=== PATIENT | female | born 1970 | race Caucasian/White ===

== ENCOUNTER → 2023-09-29 08:02 | Outpatient (REF) | payer OTHER, SELFPAY | LOC: HWRAD 08:02 | PROVIDERS: ATTENDING PHYSICIAN Obstetrics & Gynecology Gynecologic Oncology; FAMILY PHYSICIAN Nurse Practitioner; OTHER PHYSICIAN Nurse Practitioner; REFERRING PHYSICIAN Student in an Organized Health Care Education/Training Program | DX: Z15.02 Genetic susceptibility to malignant neoplasm of ovary (principal); Z15.01 Genetic susceptibility to malignant neoplasm of breast; R10.30 Lower abdominal pain, unspecified | CPT/HCPCS: 74177; Q9967 ==

== ENCOUNTER → 2023-10-23 07:22 | Outpatient (REF) | payer OTHER, SELFPAY | LOC: HWRCS 07:22 | PROVIDERS: ATTENDING PHYSICIAN Internal Medicine Cardiovascular Disease; FAMILY PHYSICIAN Nurse Practitioner | DX: R01.1 Cardiac murmur, unspecified (principal) | CPT/HCPCS: 93306 ==

== ENCOUNTER → 2024-01-04 13:45 | Outpatient (REF) | payer BC, SELFPAY | LOC: HWRAD 13:45 | PROVIDERS: ATTENDING PHYSICIAN Internal Medicine Critical Care Medicine; FAMILY PHYSICIAN Internal Medicine | DX: R93.89 Abnormal findings on diagnostic imaging of other specified body structures (principal) | CPT/HCPCS: 71250 ==

== ENCOUNTER → 2024-01-10 09:48 | Outpatient (REF) | payer BC, SELFPAY | LOC: WDC 09:48 | PROVIDERS: ATTENDING PHYSICIAN Nurse Practitioner; FAMILY PHYSICIAN Internal Medicine | DX: R92.8 Other abnormal and inconclusive findings on diagnostic imaging of breast (principal) | CPT/HCPCS: 76642; 77062; 77066 ==

== ENCOUNTER → 2024-02-12 11:00 | Outpatient (REF) | payer BC, SELFPAY | LOC: HWRAD 11:00 | PROVIDERS: ATTENDING PHYSICIAN Specialist; FAMILY PHYSICIAN Internal Medicine | DX: R94.4 Abnormal results of kidney function studies (principal); R80.9 Proteinuria, unspecified | CPT/HCPCS: 76770 ==

== ENCOUNTER 2024-03-21 17:25 | Emergency (ER) | payer BC, SELFPAY ==
[2024-03-21 17:26] VITALS: BP 117/90
--- NOTE | 2024-03-21 17:51 | ED.GENMED ---
History of Present Illness
General
Chief Complaint: Bowel Problem
Source: patient
Exam Limitations: none
Time Seen by Provider: 03/21/24 17:37
History of Present Illness
History of Present Illness:
53 year old female presents complaining of constipation and lower back and buttock pain. This has been ongoing for several days. She tried stool softeners. She tried an enema. She noted little relief with the enema. She notes bloating sensation
in her abdomen but no significant pain. No nausea vomiting or fever. No urinary symptoms. No perianal anesthesia. No other complaints. She has had a prior surgical history of appendectomy and 4 C-sections
Past History
Past History
ED Past Medical History: Asthma
ED Past Surgical History: (X 4)
Social History
Tobacco: Non-smoker
Personal:
Living: with family
Employment: Employed
Phy Exam
Physical Exam
Physical Exam:
General: Well-appearing female nontoxic no acute respiratory distress
HEENT: Normocephalic atraumatic
Heart: Regular rate and rhythm
Lungs: Clear no wheeze
Abdomen is soft nontender nondistended normal bowel sounds no guarding or rebound
Extremities: No cyanosis
Course
Orders/Labs/Results
Orders:
Orders
03/21/24 17:49
CR Obstruct Series W/pa Chest Urgent
Comment:
Reason For Exam: abdominal pain
03/21/24 20:04
Magnesium Citrate [Citroma] 300 ml PO ONCE ONE
Vital Signs
Initial and Last Documented VS:
Initial Vital Signs
Temp Pulse Resp BP Pulse Ox
97.8 F 97 18 117/90 96
03/21/24 17:26 03/21/24 17:26 03/21/24 17:26 03/21/24 17:26 03/21/24 17:26
Last Documented Vital Signs
Temp Pulse Resp BP Pulse Ox
97.8 F 97 18 117/90 96
03/21/24 17:26 03/21/24 17:26 03/21/24 17:26 03/21/24 17:26 03/21/24 17:26
MDM/Problems Addressed
Differential Diagnosis Includes:
Constipation. Consider constipation versus bowel obstruction versus abdominal pain of unclear etiology. Abdomen exam quite benign do not suspect bowel obstruction but will order obstruction series for screen. Consider magnesium citrate versus
enema
*Critical Care Note
Total Time (30-74mins, 75-104mins- exclusive of procedures): Not Applicable
Update Note
Update Note:
Obstruction series shows no obstructive pattern. There is mild amount of stool throughout the colon. Will recommend magnesium citrate. Stable for discharge with follow up.
ED Attending Note
-
Portions of this chart may have been created with voice recognition software.� Occasional wrong word or��sound alike� substitutions may have occurred due to the inherent limitations of voice recognition software.
Discharge Plan
Departure
Patient Disposition: Home (Routine Discharge)
Date of Disposition: 03/21/24
Time of Disposition: 20:05
Patient with high blood pressure during this ER visit?: No
Discharge Problem:
Constipation
Instructions: Constipation, Adult (DC)
Prescriptions:
No Action
clobetasol 0.05 % Ointment
1 applic TOPICAL . 2-3 TIMES/WEEK
estradiol 0.01 % (0.1 mg/gram) Cream
1 appful VAGINAL DAILY
budesonide-formoterol [Symbicort] 160-4.5 mcg/actuation Hfa Aerosol Inhaler
2 puff INHALATION BID
albuterol-budesonide 90-80 mcg/actuation Hfa Aerosol Inhaler
2 inh INHALATION ONCE PRN (Reason: asthma)
Rx Instructions:
as a single dose; may repeat up to 6 doses per day (12 inhalations)
Vitamin D (with calcium)
1 cap PO DAILY
Referrals:
Luke Crespo MD [Family Provider] -
Activity Restrictions/Additional Instructions:
Drink plenty fluids. Continue with stool softeners. Use magnesium citrate as directed. Return if worse otherwise follow-up with your GI doctor
Interventions
Interventions:
*Risk Screen - Suicide Last Done: 03/21/24 17:26
IA-Yugnte-Yozjqlnfjp Assessment Last Done: 03/21/24 17:49
Discharge Date and Time
Print Language: SYRIAC
[2024-03-21] MEDS: CITROMA 300 ML PO (20:12)
[2024-03-21 20:15] VITALS: BP 109/69
== END 2024-03-21 20:25 | disposition home or self-care (01) ==
LOC: EMR 17:25
PROVIDERS: EMERGENCY PHYSICIAN Student in an Organized Health Care Education/Training Program; FAMILY PHYSICIAN Internal Medicine
DX: K59.00 Constipation, unspecified (principal); J45.909 Unspecified asthma, uncomplicated; Z90.49 Acquired absence of other specified parts of digestive tract
CPT/HCPCS: 99283; 74022

== ENCOUNTER 2024-03-26 11:20 | Day surgery (SDC) | payer BC, SELFPAY ==
[2024-01-19 08:23] VITALS: BMI 18.3
[2024-01-19 08:52] LABS: % Basophils 0.6 % (0-2); % Eosinophils 2.8 % (0-6); % Immature Granulocytes 0.2 % (0-0.5); % Lymphocytes 31.4 % (20.5-51.1); % Monocytes 6.8 % (1.7-9.3); % Neutrophils 58.2 % (42.2-75.2); Absolute Eosinophils 0.1 10^3/uL (0-0.7); Absolute Lymphocytes 1.6 10^3/uL (1.2-3.4); Absolute Monocytes 0.3 10^3/uL (0.1-0.6); Absolute Neutrophils 2.9 10^3/uL (1.4-6.5); Hematocrit 37.7 % (37.0-47.0); Hemoglobin 13.1 g/dL (12.0-16.0); Mean Corp Hgb Conc. 34.7 g/dL (33.0-37.0); Mean Corpuscular Hgb 31.3 pg (27.0-31.0); Mean Platelet Volume 10.3 fL (7.4-10.4); Nucleated Red Blood Cells % 0 %; Platelet Count 224 10^3/uL (130-400); Red Blood Cell Count 4.19 10^6/uL (4.20-5.40); Red Cell Dist. Width 11.5 % (11.5-14.5)
[2024-01-19 09:19] LABS: Blood Urea Nitrogen 20 mg/dl (7-17); Calcium 9.1 mg/dl (8.4-10.2); Carbon Dioxide 25 mmol/L (22-30); Chloride 105 mmol/L (98-107); Estimated Creatinine Clearance 64 ml/min; Glucose 80 mg/dl (70-99); Potassium 4.2 mmol/L (3.5-5.1); Sodium 142 mmol/L (135-145); eGFR > 60.00
[2024-03-26] VITALS (14 sets, daily range): BP systolic 15–121; BP diastolic 50–74; BMI 18.3
[2024-03-26] MEDS: VANCOCIN 200 IV (12:06)
[2024-03-26] MEDS: TYLENOL 1000 MG PO ×2 (12:07→20:42)
--- NOTE | 2024-03-26 12:45 | W.SUR.PREOP ---
Pre-Operative Surgical Note
-
I have examined this patient prior to the performance of the scheduled procedure.
The patient's condition is unchanged from the time of the current History and
Physical and the patient is able to undergo the scheduled procedure.
--- NOTE | 2024-03-26 16:45 | OR.RPT ---
Operative Report
Operative Report
The patient is a 53-year-old female who tested positive for a deleterious variant in BRCA1 locus and she presents for bilateral nipple sparing mastectomies and immediate reconstruction with Dr. Batista.
The patient was identified and she verified site and procedure. DVT and antibiotic prophylaxis were delivered and the patient was transferred to the operating room. In the supine position, intravenous sedation was straight the general anesthesia
was induced and a Hale catheter was inserted using aseptic technique. Both breasts and chest were prepped and draped in the usual sterile fashion and attention was first turned to the left breast where an inframammary incision marked by plastic
surgery was entered sharply with the blade. The breast was taken off the chest wall using the PlasmaBlade and lighted Invuity retractor. Then the breast tissue was elevated off the underlying breast tissue in the same fashion. Larger vessels were
controlled with a 3-0 silk tie or 3-0 silk suture ligature. The breast tissue was taken off the chest wall in a superioromedial to inferior lateral dimension. Time out of body was noted and the specimens were placed immediately in formalin after
they had been oriented for the pathologist. Hemostasis was verified and a moist pack was placed in the resection cavity. In a similar fashion the right mastectomy was performed as well. Dr. Sepulveda entered to begin the reconstructive portion of
the procedure at this juncture and all sponge needle and instrument counts were correct.
--- NOTE | 2024-03-26 16:57 | W.IMMPOSTOP ---
Surgical Immed Post Op Note
-
Primary Surgeon: ORA Batista MD
Assisting Surgeon:
Pre-op Diagnosis: genetic predisposition breast cancer
Post-op Diagnosis: same
Procedure Performed: bilateral mastectomy and immediate reconstruction with tissue expanders, insertion of ADM
Anesthesia Type: General
Specimen / Cultures: Per Dr. Bui
Estimated Blood Loss: 30 cc
Complications: none
Operative Findings: as expected
--- NOTE | 2024-03-26 16:57 | OR.RPT ---
Operative Report
Operative Report
Date of Surgery: 03/26/24
Surgeon: ORA Batista MD
Preoperative diagnosis: Genetic predisposition to breast cancer
Postoperative diagnosis: Same
Procedure:
1. Bilateral immediate breast reconstruction with tissue expanders
2. Insertion of ADM, sling bilateral
Complications: None
Anesthesia: General
EBL: 30 cc
Hand Straightener size: 11 cm
Indications for procedure: Patient was referred to me by Dr. Bui with a genetic predisposition to breast cancer. She was planned to undergo bilateral mastectomy. We discussed her options for breast reconstruction at length including implant
based and autologous options. The patient opted for immediate reconstruction with tissue expanders. She understands that the final reconstruction will be staged. We also discussed the use of ADM and spy angiography. Risks include reconstructive
failure, capsular contracture, infection, delayed wound healing, mastectomy skin flap necrosis, hematoma, seroma and need for repeat procedure. Patient understood these risks and desired to proceed. Consents were signed accordingly.
Procedure in detail: Patient was identified the preoperative area and the surgical site was confirmed to be the bilateral breast. All questions were answered and consents were confirmed. Patient was then sat upright and normal anatomical landmarks
were marked including midline and inframammary fold. Patient was then taken back to the operating room placed supine on the table. She was prepped and draped in the usual sterile fashion using ChloraPrep solution. A Hale catheter was placed. A
timeout for patient safety was performed was confirmed that bilateral SCDs were in place and preoperative antibiotics administered. The procedure began with Dr. Bui first performing the mastectomy. Her op report will be dictated separately.
When I entered the procedure, the first sided mastectomy had been completed. As such I inspected the wound bed of the chest wall and ensured meticulous hemostasis. The base width was measured and appropriate tissue graphic illustrator was selected. One 6 x
16 sheet of Cortiva ADM was soaked in dilute Betadine solution. dissection continued under the pectoralis major it from the chest wall. This formed a submuscular pocket for the tissue graphic illustrator. The graphic illustrator was then sutured to the
chest wall with a series of 2-0 silk sutures. Inferolateral ADM sling was sutured to the chest wall and border of the pectoralis using 2-0 Vicryl. Pectoralis and intercostal blocks were performed with Marcaine. 2 drains were then placed in the
preaxial area line with a long subcutaneous tunnel and sutured in place with 2-0 Prolene sutures. The wound was irrigated with double antibiotic solution and dilute Betadine. The mastectomy incisions were then closed with a series of 3-0 Vicryl's
in the deep subcutaneous tissues followed by 3-0 and 4-0 Monocryl's in the deep dermis and superficial skin.
Attention was then placed on the contralateral side after completion of the mastectomy. The exact same procedure was performed. An graphic illustrator of the same size was opened and 1 sheet of ADM was soaked in Betadine. The pectoralis muscle was elevated
from the chest wall to create a pocket for the graphic illustrator. The Hand Straightener was then inserted and sutured to the chest wall. ADM was used as an inferolateral sling and sutured to the chest wall and pectoralis with 2-0 Vicryls. Pectoralis and
intercostal blocks were performed. Meticulous hemostasis was ensured and the wound was irrigated with combination of double antibiotic solution consisting of Ancef and gentamicin as well as dilute Betadine. The wound was closed in layers with 3-0
Vicryl followed by 3-0 Monocryl and 4-0 Monocryl superficial skin.
The wounds were dressed accordingly and a supportive bra was placed. The patient was extubated taken to the PACU for further care. All counts were correct at the end the case was performed out complication.
[2024-03-26] MEDS: ZOFRAN 4 MG IV (18:18)
--- NOTE | 2024-03-26 19:00 | PTCARENOTE ---
19:00 pt rec'vd from PACU aaox3, bilateral breast incision dressings DI, bilateral breast double J-Ps intact with bloody drainage and surgical bra in place. Pt at time of admit to unit denies pain, family at the bedside, pt oriented to unit.
[2024-03-26] MEDS: SYMBICORT 160/4.5 MCG INHALER 2 PUFF INH (20:09)
[2024-03-26] MEDS: BACTRIM DS 800 MG/160 MG 1 TABLET PO (20:42)
[2024-03-26] MEDS: COLACE 100 MG PO (20:42)
[2024-03-26] MEDS: NEURONTIN 100 MG PO (22:06)
[2024-03-26] MEDS: ULTRAM 50 MG PO (22:38)
[2024-03-27] MEDS: TYLENOL 1000 MG PO ×3 (00:51→12:16)
[2024-03-27] MEDS: ProAIR HFA INHALER 2 PUFF INH (03:20)
--- NOTE | 2024-03-27 04:05 | DOWNTIME ---
There was a [employer] Client Wood Router Hand Downtime on 03/27/2024 from 0100 to 03/27/2024 at 0350. Downtime documentation of patient's care, including medication administrations, has been reconciled in the electronic record per guidelines. Refer to the
patient's paper chart under the miscellaneous tab to see printed paper medication records and downtime forms.
[2024-03-27] MEDS: ULTRAM 50 MG PO (04:47)
[2024-03-27 06:32] LABS: Hematocrit 35.9 % (37.0-47.0); Hemoglobin 12.6 g/dL (12.0-16.0)
[2024-03-27 07:09] LABS: Blood Urea Nitrogen 11 mg/dl (7-17); Calcium 8.6 mg/dl (8.4-10.2); Carbon Dioxide 25 mmol/L (22-30); Chloride 103 mmol/L (98-107); Estimated Creatinine Clearance 64 ml/min; Glucose 94 mg/dl (70-99); Potassium 4.1 mmol/L (3.5-5.1); Sodium 137 mmol/L (135-145); eGFR > 60.00
[2024-03-27] MEDS: SYMBICORT 160/4.5 MCG INHALER 2 PUFF INH (07:17)
[2024-03-27] MEDS: NON-FORMULARY ITEM 2 PUFF INH (07:19)
[2024-03-27 08:15] VITALS: BP 143/71
[2024-03-27] MEDS: NEURONTIN 100 MG PO (08:19)
[2024-03-27] MEDS: BACTRIM DS 800 MG/160 MG 1 TABLET PO (08:19)
[2024-03-27] MEDS: COLACE 100 MG PO (08:19)
--- NOTE | 2024-03-27 08:19 | W.PN.PLAS ---
Progress Note
Subjective Data
pain control issues overnight, will improve with oral meds today
Denies shortness of breath
Objective Data
Vital Signs
Temp Pulse Resp BP Pulse Ox
98 F 67 16 121/63 97
03/26/24 22:00 03/27/24 07:25 03/27/24 07:25 03/26/24 22:00 03/27/24 07:25
Intake and Output
03/26/24 03/27/24 03/28/24
06:59 06:59 06:59
Intake Total 590 / 590
Output Total 540 / 540
Balance 50 / 50
Intake:
Oral fluids 240 / 240
IV fluids (Total) 350 / 350
Normosol 350 / 350
Output:
Drain Output (Total) 340 / 340
Left Breast A 60 / 60
Left Breast B 120 / 120
Right Breast A 105 / 105
Right Breast B 55 / 55
Urine, Hale 200 / 200
Other:
Number of approximated SMALL 1
amounts of urine
Number of approximated MODERATE 1
amounts of urine
Number of approximated LARGE 1
amounts of urine
physical exam:
No acute distress
No increased work of breathing
Bilateral expanders in place
Drain serosanguineous with appropriate output
No undrained fluid collections
Dressings intact
Lab Results
03/27/24 05:25
03/27/24 05:25
Assessment / Plan
status post bilateral mastectomy and immediate reconstruction with tissue expanders
Discharge to home today with visiting nurse
SCDs
Antibiotics
P.o. pain control
--- NOTE | 2024-03-27 08:19 | W.DCSUMMARY ---
Discharge Summary
Discharge Data
Date of Admission: 03/26/24
Date of Discharge: 03/27/24
-
Pending Results: No
Hospital Course
Routine postoperative course following bilateral mastectomy and immediate tester wafer substrate recon.
Admitted for pain control and mastectomy flap monitoring.
Discharged on po pain meds, ambulatory, voiding, with close surgical follow up.
Discharge Plan
-
Patient Disposition: Home (Routine Discharge)
Discharge Diagnosis/Procedures: s/p bilateral mastectomy and immediate tester wafer substrate reconstruction
Condition: Good
Diet: No restrictions
Additional Diets: High fiber, probiotics
Activity: No strenuous activity
Additional Activity: No heavy lifting >10lbs, 'T-bridget' arms
Driving Restrictions: Not until seen by your Dr
Bathing Restrictions: OK to Shower
Other Services: VN
Wound Care: Remove dressings if they become wet, strip and record drain output twice daily, lightly compressive sports bra
Referrals:
Luke Crespo MD [Family Provider] -
Prescriptions:
New
polyethylene glycol 3350 17 gram Powder In Packet
17 g PO DAILY 14 Days Qty: 14 0RF
sulfamethoxazole-trimethoprim 800-160 mg Tablet
1 tab PO BID 21 Days Qty: 42 0RF
gabapentin 100 mg Capsule
100 mg PO TID 30 Days Qty: 90 3RF
acetaminophen 500 mg capsule
1,000 mg PO QID Qty: 240 2RF
tramadol 50 mg Tablet
50 - 100 mg PO Q6HPRN PRN (Reason: pain) 14 Days Qty: 24 0RF
diazepam 5 mg Tablet
5 mg PO TIDPRN 14 Days Qty: 42 1RF
Continued
clobetasol 0.05 % Ointment
1 applic TOPICAL . 2-3 TIMES/WEEK
estradiol 0.01 % (0.1 mg/gram) Cream
1 appful VAGINAL DAILY
budesonide-formoterol [Symbicort] 160-4.5 mcg/actuation Hfa Aerosol Inhaler
2 puff INHALATION BID
Vitamin D (with calcium)
1 cap PO DAILY
albuterol sulfate 90 mcg/actuation Hfa Aerosol Inhaler
2 puff INHALATION Q6H PRN (Reason: SOB)
docusate sodium
1 dose PO PRN PRN (Reason: constipation)
Rx Instructions:
Pt unable to provide exact dose at time.
magnesium citrate
1 dose PO PRN PRN (Reason: constipation)
Rx Instructions:
Pt unable to provide exact dose at this time.
Discontinued
polyethylene glycol 3350 [Miralax] 17 gram/dose Powder
4 g PO ONCE PRN (Reason: constipation)
Discharge Orders:
Discharge Patient (As Directed); Ordered 03/27/24
Ordered By: Anthony Batista
Discharge Date and Time
Print Language: MACANESE
[2024-03-27] MEDS: MIRALAX 17 GRAMS PO (08:20)
[2024-03-27] MEDS: VALIUM 5 MG PO (08:27)
--- NOTE | 2024-03-27 10:51 | VNURNOTE ---
Home Health Liaison spoke with patient and spouse to discuss [facility] nurse/therapy, visits, schedule and homebound status. Patient is agreeable and understands that visits at home will be 2-3 x per week to assess and teach medical and drain management.
Provided with [facility] contact information. Patient is aware that [facility] will contact them for start of care in 1-2 days after discharge from .
[facility] referral completed in [facility].
[2024-03-27 12:00] VITALS: BP 132/73
== END 2024-03-27 13:05 | disposition home or self-care (01) ==
LOC: SDS 11:20
PROVIDERS: ATTENDING PHYSICIAN Surgery; FAMILY PHYSICIAN Internal Medicine; OTHER PHYSICIAN Internal Medicine Critical Care Medicine; OTHER PHYSICIAN Obstetrics & Gynecology Gynecologic Oncology; OTHER PHYSICIAN Specialist; REFERRING PHYSICIAN Surgery Plastic and Reconstructive Surgery
DX: Z40.01 Encounter for prophylactic removal of breast (principal); Z15.01 Genetic susceptibility to malignant neoplasm of breast; Z80.3 Family history of malignant neoplasm of breast; Z87.09 Personal history of other diseases of the respiratory system
CPT/HCPCS: 19357; 19303; 15777; 88305; 88307; 36415; 80048; 85014; 85018; 85025; 87070; 88341; 88342; 93005; 94640; C1789; Q4100

== ENCOUNTER → 2024-05-15 10:22 | Outpatient (REF) | payer BC, SELFPAY ==
[2024-05-16 18:57] LABS: CA 125 < 5.5 U/mL (0-35)
== END ==
LOC: HWRAD 10:22
PROVIDERS: ATTENDING PHYSICIAN Obstetrics & Gynecology Gynecologic Oncology; FAMILY PHYSICIAN Internal Medicine; OTHER PHYSICIAN Nurse Practitioner; REFERRING PHYSICIAN Surgery
DX: Z15.02 Genetic susceptibility to malignant neoplasm of ovary (principal); Z15.01 Genetic susceptibility to malignant neoplasm of breast; C56.9 Malignant neoplasm of unspecified ovary; R10.30 Lower abdominal pain, unspecified
CPT/HCPCS: 36415; 76856; 86304

== ENCOUNTER 2024-05-31 12:59 | Outpatient (RCR) | payer BC, SELFPAY | END 2024-05-31 23:59 | disposition home or self-care (01) | LOC: RPT 12:59 | PROVIDERS: ATTENDING PHYSICIAN Surgery Plastic and Reconstructive Surgery; FAMILY PHYSICIAN Internal Medicine | DX: Z42.1 Encounter for breast reconstruction following mastectomy (principal); L90.5 Scar conditions and fibrosis of skin; Z15.89 Genetic susceptibility to other disease; Z15.01 Genetic susceptibility to malignant neoplasm of breast; Z73.6 Limitation of activities due to disability; Z40.01 Encounter for prophylactic removal of breast | CPT/HCPCS: 97110; 97140; 97162; 97530 ==

== ENCOUNTER 2024-06-21 08:45 | Outpatient (RCR) | payer BC, SELFPAY | END 2024-06-21 23:59 | disposition home or self-care (01) | LOC: RPT 08:45 | PROVIDERS: ATTENDING PHYSICIAN Surgery Plastic and Reconstructive Surgery; FAMILY PHYSICIAN Internal Medicine | DX: Z42.1 Encounter for breast reconstruction following mastectomy (principal); Z15.89 Genetic susceptibility to other disease; L90.5 Scar conditions and fibrosis of skin; Z15.01 Genetic susceptibility to malignant neoplasm of breast; Z73.6 Limitation of activities due to disability; Z40.01 Encounter for prophylactic removal of breast | CPT/HCPCS: 97110; 97112; 97140; 97530 ==

== ENCOUNTER 2024-06-26 06:34 | Day surgery (SDC) | payer BC, SELFPAY ==
[2024-06-25 11:04] LABS: % Basophils 0.7 % (0-2); % Eosinophils 3.2 % (0-6); % Immature Granulocytes 0.2 % (0-0.5); % Lymphocytes 40.6 % (20.5-51.1); % Monocytes 8.2 % (1.7-9.3); % Neutrophils 47.1 % (42.2-75.2); Absolute Eosinophils 0.1 10^3/uL (0-0.7); Absolute Lymphocytes 1.6 10^3/uL (1.2-3.4); Absolute Monocytes 0.3 10^3/uL (0.1-0.6); Absolute Neutrophils 1.9 10^3/uL (1.4-6.5); Hematocrit 41.5 % (37.0-47.0); Hemoglobin 14.3 g/dL (12.0-16.0); Mean Corp Hgb Conc. 34.5 g/dL (33.0-37.0); Mean Corpuscular Hgb 30.4 pg (27.0-31.0); Mean Corpuscular Volume 88.3 fL (81.0-99.0); Nucleated Red Blood Cells % 0 %; Platelet Count 230 10^3/uL (130-400)
[2024-06-25 12:02] LABS: ALT (SGPT) 15 U/L (0-35); AST (SGOT) 19 U/L (14-36); Alkaline Phosphatase 69 U/L (38-126); Blood Urea Nitrogen 14 mg/dl (7-17); Calcium 9.3 mg/dl (8.4-10.2); Carbon Dioxide 29 mmol/L (22-30); Chloride 101 mmol/L (98-107); Glucose 82 mg/dl (70-99); Sodium 140 mmol/L (135-145); eGFR > 60.00
[2024-06-25 13:43] VITALS: BMI 20.1
[2024-06-26] VITALS (9 sets, daily range): BP systolic 96–114; BP diastolic 64–74; BMI 20.1
[2024-06-26] MEDS: NEURONTIN 300 MG PO (13:06)
[2024-06-26] MEDS: TYLENOL 1000 MG PO (13:06)
[2024-06-26] MEDS: CELEBREX 200 MG PO (13:06)
[2024-06-26] MEDS: NORMOSOL-R/PLASMALYTE-A 1000 IV (13:07)
[2024-06-26] MEDS: HEPARIN 5000 UNITS SC (13:07)
--- NOTE | 2024-06-26 16:38 | W.IMMPOSTOP ---
Surgical Immed Post Op Note
-
Primary Surgeon: ORA Batista MD
Assisting Surgeon:
Pre-op Diagnosis: BRCA positive
Post-op Diagnosis: Same
Procedure Performed: Bilateral removal of breast tissue expanders, bilateral insertion of permanent silicone gel implants, fat grafting to bilateral breasts with donor site medial thighs
Anesthesia Type: General
Specimen / Cultures: None
Estimated Blood Loss: 10 cc
Complications: None
Operative Findings: As expected
--- NOTE | 2024-06-26 16:39 | OR.RPT ---
Operative Report
Operative Report
Date of surgery: 06/26/2024
Surgeon: ORA Batista MD
Preoperative diagnosis: History of genetic predisposition of breast cancer, BRCA
Postoperative diagnosis: Same
Procedure:
1. Bilateral removal of tissue expanders, breast
2. Bilateral insertion of permanent silicone gel breast implants
3. Fat grafting to the bilateral breasts, 70 cc total, donor site medial thighs
Anesthesia: General
EBL: 10 cc
Complications: None
Specimens: None
Indications for procedure: Patient is known to me for having a genetic predisposition to breast cancer status post bilateral nipple sparing mastectomy and immediate reconstruction with tissue expanders. She is ready for the second stage of
reconstruction desired to exchange the expanders for permanent silicone gel breast implants. This would be done concurrently with a procedure by Dr. Page in which he would be performing a laparoscopic BSO. Risks of silicone gel breast implants
were reviewed at length including rupture, capsular contracture, KY, [place] ALCL, malposition, wrinkling and rippling as well as infection. Risks of fat grafting reviewed including fat necrosis, oil cyst, donor site abnormality. General risks of
hematoma, seroma, infection were reviewed. Patient understood these risk desire to proceed.
Procedure in detail: Patient was identified preoperatively and the surgical site was confirmed to the bilateral breast and medial thighs. The inframammary scar was marked out for incision with the patient upright position. Medial thighs were also
marked out with the relative areas of lipodystrophy. All questions were answered consents were confirmed. Patient was taken back to the operating room placed supine on table. Anesthesia was induced and the patient was prepped and draped in the
usual sterile fashion using ChloraPrep solution. A timeout for patient safety was performed was confirmed that preoperative antibiotics have been administered and bilateral SCDs were placed. I started my portion of the procedure with the injection
of 1% lidocaine with epinephrine in the inframammary folds as well as access sites of the medial thighs. Bilateral thighs were tumesced with a solution consisting of a dilute solution of lidocaine with epinephrine and a liter of normal saline. A
total of 500 cc was infiltrated into the each thigh. Attention was then drawn back up to the breast where the inframammary fold was incised dissection continued sharply to elevate the inferior pole skin flap. Bovie electrocautery was used to
perform a capsulotomy and the tissue mobile home lot utility worker was removed. Additional capsulotomies were performed to expand the lower pole and a radial pattern as well as superior medially accommodate room for the implant. Tickles hemostasis was ensured and a
gel sizer was placed. The sizer was 325 cc. It was noted that this may have overcorrected or be on the patient's desires. As such smaller implant size was selected. A 285 cc Sientra smooth cohesive silicone implant was selected. The implant
pocket was irrigated with double antibiotic solution followed by by dilute Betadine. New gloves were donned and using a no touch technique and a Tatum funnel the implant was inserted into the right breast. The wound was then closed with layers
including 2-0 Vicryl deep followed by 3 and 4 Monocryl. Attention was drawn to the left side where the exact same procedure was performed. Inframammary fold was incised and dissection continued until the capsule was encountered and capsulotomy was
performed and tissue mobile home lot utility worker was removed. Additional capsulotomies were made in the to expand the lower pole and the superior medial aspect to accommodate the implant. A sizer was placed to ensure adequate symmetry been achieved and the
modifications the pocket were made. Meticulous hemostasis was ensured and the pocket was irrigated with double antibiotic solution followed by dilute Betadine. Another 285 cc implant was opened and after donning new gloves placed in a no touch
technique using a Tatum funnel. The wound was closed in 3 layers with 2-0 Vicryl deep followed by 3 and 4 Monocryl. Attention was then drawn to the fat graft harvest of medial thighs. A total o of 300 cc of Lipo aspirate was removed from the
medial thighs using a SAF E protocol. The fat was processed using the PURE GRAFT system.
This allowed for 35 cc of fat grafting to be injected into each breast. This was distributed along the portion of the breast where the pectoralis muscle did not provide adequate coverage. Great symmetry had been achieved. Vocals were closed with
5-0 fast. Wounds were dressed with antibiotic ointment followed by dry gauze and Tegaderm. Patient tolerated the procedure well was performed without complication all counts were correct correct at the conclusion of my case. At this time the
patient was redraped and Dr. Page completed his portion of the procedure. His op report will be dictated separately.
--- NOTE | 2024-06-26 16:55 | OR.RPT ---
Operative Report
Operative Report
Date of surgery: 06/26/2024
Preoperative diagnosis: BRCA mutation, desire for risk reducing salpingo-oophorectomy
Postoperative diagnosis: Same
Procedure: Laparoscopic bilateral salpingo-oophorectomy, dilation and curettage, pelvic washing
Surgeon: Ayo Page MD
Assist: Lelia Falk PA-C
The assistance of MARBELLA was required due to the complexity of the procedure. During the procedure PA assisted with retraction, resection, and closure of the wound.
Anesthesia General Endotracheal intubation
Complication: None
Estimated blood loss: 5 cc
Indication for surgery: This patient has BRCA mutation, she has undergone bilateral risk reducing mastectomy, she is returning back to the operating room for exchange of expanders with implants. Following completion of this procedure she wanted to
undergo laparoscopic bilateral salpingo-oophorectomy for risk reducing purposes at the same time. Preoperative imaging has been suggestive of normal tubes and ovaries and her CA125 is normal.
Specimens: Endometrial curetting, pelvic washings, right tube and ovary, left tube and ovary
Procedure in detail: After completion of first portion of the surgery by plastics team the patient was repositioned in lithotomy, she was already intubated, her arms were wrapped with foam and placed on the patient's side and tucked along the body.
Appropriate IVs were already in place. The Hale catheter was already in place. Vaginal and perineal prep was performed with Betadine solution. Timeout procedure was carried out she had received Ancef already, anterior lip of the cervix was
grasped with single-tooth tenaculum the cervical canal was gradually dilated there was sharply anteverted sharp curettage of the endometrial cavity was performed and minimal tissue was obtained and this was submitted to pathology. I placed a
uterine manipulator stiff neck loader type in the uterine cavity. 2.5 cm Ami ring was used. Next attention was turned to the abdomen, Veress needle was inserted just below the left subcostal margin and insufflation of the abdomen with CO2 gas was
performed up to pressure of 15 mmHg. Following this 5 mm port was placed 5 cm above the umbilicus and a survey of the abdomen was performed upper abdomen including right and left lobe of liver right and left diaphragms omentum right and left
paracolic gutters are within normal limits. There were filmy adhesions in the right lower quadrant which were taken down sharply eventually into the thicker omental adhesions to the anterior abdominal wall which was also taken down with the vessel
sealer. A 5 mm port was placed in the right lower quadrant, 11 mm port was placed in the left lower quadrant. Patient was placed in 28 degree Trendelenburg. Washings were collected from the posterior cul-de-sac. The uterus appeared to be within
normal limits right and left tubes and ovaries were normal in appearance there were no peritoneal implants present. Posterior leaf of the broad ligament was opened bilaterally retroperitoneum was explored. Course of the ureters were identified.
An avascular window was developed between IP ligaments and ureters. Both IP ligaments were sealed 3 times with vessel sealer and divided. We then detached each tube and ovary from the cornua of the uterus as well as uterosacral ligaments with
vessel sealer and the remainder of the peritoneal attachments were sealed and divided. Each tube and ovary was placed in a separate endoscopic bag and was retrieved through the 11 mm port. We examined all operative sites and good hemostasis was
present. Following this pneumoperitoneum was released. The fascia at the 11 mm port site was closed with a single suture of 0 Vicryl approximating the fascia. 4-0 Monocryl was used in subcuticular fashion to close all skin incisions. Total of 10
cc 0.5% Marcaine was applied to the 3 incisions, Hale catheter and uterine manipulator was removed. Patient was awakened extubated and returned back to recovery room stable awake and extubated condition. Counts of laps instruments and needle was
correct x 2. I was present and scrubbed for entire procedure as dictated above
Disposition: To PACU stable awake extubated
[2024-06-26] MEDS: DEMEROL 12.5 MG IV (17:23)
[2024-06-26] MEDS: ROXICODONE 5 MG PO (19:00)
== END 2024-06-26 19:10 | disposition home or self-care (01) ==
LOC: SDS 06:34
PROVIDERS: ATTENDING PHYSICIAN Surgery Plastic and Reconstructive Surgery; FAMILY PHYSICIAN Internal Medicine
DX: N83.8 Other noninflammatory disorders of ovary, fallopian tube and broad ligament (principal); Z15.01 Genetic susceptibility to malignant neoplasm of breast; K66.0 Peritoneal adhesions (postprocedural) (postinfection); Z98.890 Other specified postprocedural states; Z42.1 Encounter for breast reconstruction following mastectomy; Z40.01 Encounter for prophylactic removal of breast
CPT/HCPCS: 11970; 15771; 58661; 58120; 88305; 36415; 80053; 85025; 86850; 86900; 86901; 88112; 88341; 88342; 93005; C1776; C1789; L8000

== ENCOUNTER → 2024-07-22 08:42 | Outpatient (REF) | payer BC, SELFPAY | LOC: HWRAD 08:42 | PROVIDERS: ATTENDING PHYSICIAN Physician Assistant Surgical; FAMILY PHYSICIAN Student in an Organized Health Care Education/Training Program; OTHER PHYSICIAN Internal Medicine; REFERRING PHYSICIAN Obstetrics & Gynecology Gynecologic Oncology | DX: Z15.02 Genetic susceptibility to malignant neoplasm of ovary (principal); Z15.01 Genetic susceptibility to malignant neoplasm of breast; R10.30 Lower abdominal pain, unspecified | CPT/HCPCS: 77080 ==

== ENCOUNTER 2024-07-26 11:05 | Outpatient (RCR) | payer BC, SELFPAY | END 2024-07-26 23:59 | disposition home or self-care (01) | LOC: RPT 11:05 | PROVIDERS: ATTENDING PHYSICIAN Surgery Plastic and Reconstructive Surgery; FAMILY PHYSICIAN Internal Medicine | DX: R20.2 Paresthesia of skin (principal); M62.81 Muscle weakness (generalized); R20.0 Anesthesia of skin; Z73.6 Limitation of activities due to disability; K59.09 Other constipation; Z90.13 Acquired absence of bilateral breasts and nipples | CPT/HCPCS: 97110; 97140; 97162; 97530 ==

== ENCOUNTER 2024-08-27 06:26 | Outpatient (RCR) | payer BC, SELFPAY | END 2024-08-27 23:59 | disposition home or self-care (01) | LOC: RPT 06:26 | PROVIDERS: ATTENDING PHYSICIAN Surgery Plastic and Reconstructive Surgery; FAMILY PHYSICIAN Internal Medicine | DX: Z40.01 Encounter for prophylactic removal of breast (principal); M62.81 Muscle weakness (generalized); F52.6 Dyspareunia not due to a substance or known physiological condition; R20.2 Paresthesia of skin; Z73.6 Limitation of activities due to disability; R20.0 Anesthesia of skin; K59.09 Other constipation; Z90.13 Acquired absence of bilateral breasts and nipples | CPT/HCPCS: 97110; 97112; 97140; 97530 ==

== ENCOUNTER → 2024-09-09 08:02 | Outpatient (REF) | payer BC, SELFPAY ==
[2024-09-09 08:30] LABS: % Basophils 0.7 % (0-2); % Immature Granulocytes 0.2 % (0-0.5); % Neutrophils 43.1 % (42.2-75.2); Absolute Eosinophils 0.2 10^3/uL (0-0.7); Absolute Lymphocytes 1.7 10^3/uL (1.2-3.4); Absolute Monocytes 0.4 10^3/uL (0.1-0.6); Absolute Neutrophils 1.7 10^3/uL (1.4-6.5); Hematocrit 40.4 % (37.0-47.0); Mean Corp Hgb Conc. 34.7 g/dL (33.0-37.0); Mean Corpuscular Hgb 31.2 pg (27.0-31.0); Mean Platelet Volume 9.7 fL (7.4-10.4); Nucleated Red Blood Cells % 0 %; Platelet Count 220 10^3/uL (130-400); Red Blood Cell Count 4.49 10^6/uL (4.20-5.40); Red Cell Dist. Width 11.4 % (11.5-14.5)
[2024-09-09 09:23] LABS: Vitamin D, 25-OH*** 40.3 ng/mL (30-80)
[2024-09-09 09:36] LABS: TSH Reflex To Free T4 1.64 uIU/ml (0.47-4.68)
== END ==
LOC: REG 08:02
PROVIDERS: ATTENDING PHYSICIAN Physician Assistant Surgical; FAMILY PHYSICIAN Family Medicine; OTHER PHYSICIAN Internal Medicine Critical Care Medicine
DX: Z15.02 Genetic susceptibility to malignant neoplasm of ovary (principal); Z15.01 Genetic susceptibility to malignant neoplasm of breast; R10.30 Lower abdominal pain, unspecified; Z13.820 Encounter for screening for osteoporosis
CPT/HCPCS: 36415; 82306; 84443; 85025

== ENCOUNTER → 2024-09-19 09:32 | Outpatient (REF) | payer BC, SELFPAY ==
[2024-09-19 10:14] LABS: % Basophils 0.6 % (0-2); % Eosinophils 2.4 % (0-6); % Immature Granulocytes 0.2 % (0-0.5); % Lymphocytes 36.9 % (20.5-51.1); % Neutrophils 52.9 % (42.2-75.2); Absolute Eosinophils 0.1 10^3/uL (0-0.7); Absolute Lymphocytes 1.9 10^3/uL (1.2-3.4); Absolute Monocytes 0.4 10^3/uL (0.1-0.6); Absolute Neutrophils 2.7 10^3/uL (1.4-6.5); Hematocrit 42.8 % (37.0-47.0); Hemoglobin 14.5 g/dL (12.0-16.0); Mean Corp Hgb Conc. 33.9 g/dL (33.0-37.0); Mean Corpuscular Hgb 30.2 pg (27.0-31.0); Mean Corpuscular Volume 89.2 fL (81.0-99.0); Mean Platelet Volume 9.9 fL (7.4-10.4); Nucleated Red Blood Cells % 0 %; Platelet Count 223 10^3/uL (130-400); Red Cell Dist. Width 11.4 % (11.5-14.5)
[2024-09-19 10:45] LABS: C-Reactive Protein < 5.00 mg/L (0.0-10.00)
[2024-09-19 10:47] LABS: ALT (SGPT) 22 U/L (0-35); AST (SGOT) 22 U/L (14-36); Alkaline Phosphatase 61 U/L (38-126); Blood Urea Nitrogen 14 mg/dl (7-17); Calcium 9.5 mg/dl (8.4-10.2); Carbon Dioxide 29 mmol/L (22-30); Chloride 106 mmol/L (98-107); Glucose 81 mg/dl (70-99); LDH 163 U/L (120-246); Potassium 4.1 mmol/L (3.5-5.1); Sodium 144 mmol/L (135-145); Total Bilirubin 0.7 mg/dl (0.2-1.3); Total Protein 7.4 g/dl (6.3-8.2); eGFR > 60.00
[2024-09-19 11:38] LABS: Erythrocyte Sed Rate 5 mm/hour (0-20)
[2024-09-20 21:21] LABS: Beta-2-Microglobulin 1.6 mg/L (0.8-2.4)
== END ==
LOC: REG 09:32
PROVIDERS: FAMILY PHYSICIAN Internal Medicine
DX: Z15.02 Genetic susceptibility to malignant neoplasm of ovary (principal); Z15.01 Genetic susceptibility to malignant neoplasm of breast; R10.30 Lower abdominal pain, unspecified; Z13.820 Encounter for screening for osteoporosis
CPT/HCPCS: 36415; 80053; 82232; 82784; 83521; 83615; 84155; 84165; 85025; 85652; 86140; 86334

== ENCOUNTER 2024-09-27 08:05 | Outpatient (RCR) | payer BC, SELFPAY | END 2024-09-27 23:59 | disposition home or self-care (01) | LOC: RPT 08:05 | PROVIDERS: ATTENDING PHYSICIAN Surgery Plastic and Reconstructive Surgery; FAMILY PHYSICIAN Internal Medicine | DX: Z40.01 Encounter for prophylactic removal of breast (principal); F52.6 Dyspareunia not due to a substance or known physiological condition; M62.81 Muscle weakness (generalized); R20.2 Paresthesia of skin; R20.0 Anesthesia of skin; Z73.6 Limitation of activities due to disability; K59.09 Other constipation; Z90.13 Acquired absence of bilateral breasts and nipples | CPT/HCPCS: 97110; 97112; 97140; 97164; 97530 ==

== ENCOUNTER → 2024-10-14 07:38 | Outpatient (REF) | payer BC, SELFPAY ==
[2024-10-14 08:55] LABS: % Basophils 0.8 % (0-2); % Eosinophils 2.5 % (0-6); % Immature Granulocytes 0.3 % (0-0.5); % Lymphocytes 38.8 % (20.5-51.1); % Monocytes 8.5 % (1.7-9.3); % Neutrophils 49.1 % (42.2-75.2); Absolute Eosinophils 0.1 10^3/uL (0-0.7); Absolute Lymphocytes 1.6 10^3/uL (1.2-3.4); Absolute Monocytes 0.3 10^3/uL (0.1-0.6); Hematocrit 39.4 % (37.0-47.0); Hemoglobin 13.6 g/dL (12.0-16.0); Mean Corp Hgb Conc. 34.5 g/dL (33.0-37.0); Mean Corpuscular Hgb 30.6 pg (27.0-31.0); Mean Corpuscular Volume 88.5 fL (81.0-99.0); Mean Platelet Volume 10.2 fL (7.4-10.4); Nucleated Red Blood Cells % 0 %; Platelet Count 214 10^3/uL (130-400); Red Blood Cell Count 4.45 10^6/uL (4.20-5.40); Red Cell Dist. Width 11.5 % (11.5-14.5)
== END ==
LOC: REG 07:38
PROVIDERS: ATTENDING PHYSICIAN Nurse Practitioner Family; FAMILY PHYSICIAN Internal Medicine
DX: Z15.02 Genetic susceptibility to malignant neoplasm of ovary (principal); Z15.01 Genetic susceptibility to malignant neoplasm of breast; R10.30 Lower abdominal pain, unspecified; Z13.820 Encounter for screening for osteoporosis
CPT/HCPCS: 36415; 85025

== ENCOUNTER 2024-10-25 13:36 | Outpatient (RCR) | payer BC, SELFPAY | END 2024-10-25 23:59 | disposition home or self-care (01) | LOC: RPT 13:36 | PROVIDERS: ATTENDING PHYSICIAN Surgery Plastic and Reconstructive Surgery; FAMILY PHYSICIAN Internal Medicine | DX: Z40.01 Encounter for prophylactic removal of breast (principal); F52.6 Dyspareunia not due to a substance or known physiological condition; N32.81 Overactive bladder; M62.81 Muscle weakness (generalized); R20.2 Paresthesia of skin; R20.0 Anesthesia of skin; Z73.6 Limitation of activities due to disability; K59.09 Other constipation; Z90.13 Acquired absence of bilateral breasts and nipples | CPT/HCPCS: 97110; 97112; 97140 ==

== ENCOUNTER → 2024-11-06 09:28 | Outpatient (REF) | payer BC, SELFPAY | LOC: WDC 09:28 | PROVIDERS: ATTENDING PHYSICIAN Surgery; FAMILY PHYSICIAN Family Medicine | DX: N63.20 Unspecified lump in the left breast, unspecified quadrant (principal); N63.21 Unspecified lump in the left breast, upper outer quadrant | CPT/HCPCS: 76642 ==

== ENCOUNTER 2024-11-15 11:33 | Outpatient (RCR) | payer BC, SELFPAY | END 2024-11-15 23:59 | disposition home or self-care (01) | LOC: RPT 11:33 | PROVIDERS: ATTENDING PHYSICIAN Surgery Plastic and Reconstructive Surgery; FAMILY PHYSICIAN Internal Medicine | DX: Z40.01 Encounter for prophylactic removal of breast (principal); F52.6 Dyspareunia not due to a substance or known physiological condition; M62.81 Muscle weakness (generalized); R20.2 Paresthesia of skin; R20.0 Anesthesia of skin; Z73.6 Limitation of activities due to disability; K59.09 Other constipation; Z90.13 Acquired absence of bilateral breasts and nipples | CPT/HCPCS: 97110; 97112; 97140 ==

== ENCOUNTER 2024-12-27 06:29 | Outpatient (RCR) | payer BC, SELFPAY | END 2024-12-27 23:59 | disposition home or self-care (01) | LOC: RPT 06:29 | PROVIDERS: ATTENDING PHYSICIAN Surgery Plastic and Reconstructive Surgery; FAMILY PHYSICIAN Internal Medicine | DX: R20.2 Paresthesia of skin (principal); Z40.01 Encounter for prophylactic removal of breast (principal); M62.81 Muscle weakness (generalized); F52.6 Dyspareunia not due to a substance or known physiological condition; Z73.6 Limitation of activities due to disability; R20.0 Anesthesia of skin; K59.09 Other constipation; N32.81 Overactive bladder; R10.2 Pelvic and perineal pain; Z90.13 Acquired absence of bilateral breasts and nipples | CPT/HCPCS: 97110; 97112; 97140; 97530 ==

== ENCOUNTER 2025-01-01 07:40 | Outpatient (RCR) | payer BC, SELFPAY | END 2025-01-01 23:59 | disposition home or self-care (01) | LOC: RPT 07:40 | PROVIDERS: ATTENDING PHYSICIAN Surgery Plastic and Reconstructive Surgery; FAMILY PHYSICIAN Internal Medicine | DX: R20.2 Paresthesia of skin (principal); M62.81 Muscle weakness (generalized); R20.0 Anesthesia of skin; Z73.6 Limitation of activities due to disability; F52.6 Dyspareunia not due to a substance or known physiological condition; K59.09 Other constipation; N32.81 Overactive bladder; R10.2 Pelvic and perineal pain; Z90.13 Acquired absence of bilateral breasts and nipples; Z40.01 Encounter for prophylactic removal of breast | CPT/HCPCS: 97110; 97112; 97140 ==

== ENCOUNTER 2025-02-21 06:49 | Outpatient (RCR) | payer BC, SELFPAY | END 2025-02-21 23:59 | disposition home or self-care (01) | LOC: RPT 06:49 | PROVIDERS: ATTENDING PHYSICIAN Surgery Plastic and Reconstructive Surgery; FAMILY PHYSICIAN Internal Medicine | DX: R20.2 Paresthesia of skin (principal); M62.81 Muscle weakness (generalized); R20.0 Anesthesia of skin; Z73.6 Limitation of activities due to disability; F52.6 Dyspareunia not due to a substance or known physiological condition; K59.09 Other constipation; N32.81 Overactive bladder; R10.2 Pelvic and perineal pain; R10.20 Pelvic and perineal pain unspecified side; Z90.13 Acquired absence of bilateral breasts and nipples; Z40.01 Encounter for prophylactic removal of breast | CPT/HCPCS: 97110; 97112; 97140; 97530 ==

== ENCOUNTER → 2025-03-14 08:14 | Outpatient (REF) | payer BC, SELFPAY | LOC: WDC 08:14 | PROVIDERS: ATTENDING PHYSICIAN Surgery; FAMILY PHYSICIAN Family Medicine | DX: R92.8 Other abnormal and inconclusive findings on diagnostic imaging of breast (principal) | CPT/HCPCS: 76642 ==

== ENCOUNTER 2025-03-26 06:25 | Outpatient (RCR) | payer BC, SELFPAY | END 2025-03-26 23:59 | disposition home or self-care (01) | LOC: RPT 06:25 | PROVIDERS: ATTENDING PHYSICIAN Surgery Plastic and Reconstructive Surgery; FAMILY PHYSICIAN Internal Medicine | DX: R20.2 Paresthesia of skin (principal); M62.81 Muscle weakness (generalized); R20.0 Anesthesia of skin; Z73.6 Limitation of activities due to disability; F52.6 Dyspareunia not due to a substance or known physiological condition; K59.09 Other constipation; N32.81 Overactive bladder; R10.20 Pelvic and perineal pain unspecified side; Z90.13 Acquired absence of bilateral breasts and nipples; R10.2 Pelvic and perineal pain; Z40.01 Encounter for prophylactic removal of breast | CPT/HCPCS: 97110; 97112; 97140; 97530 ==